=== PATIENT | female | born 2000 | race Two or more races ===

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

== ENCOUNTER 2021-08-24 12:22 | Emergency (ER) | payer OTHER ==
[~2021-08-24] VITALS: Ht 162.6 cm; Wt 72.6 kg
[~2021-08-24 12:22] MED LIST: IBUP-1955 PO
[2021-08-24 12:36] VITALS: BP 136/81
[2021-08-24] MEDS ORDERED: ACETAMINOPHEN ES 500 MG TABLET ONE (12:40)
[2021-08-24] MEDS: ACETAMINOPHEN 325 MG TABLET PO ONE (12:54)
[2021-08-24] MEDS ORDERED: BENZ-13 PO (14:27)
[2021-08-24] MEDS ORDERED: IBUP-1955 PO (14:27)
== END 2021-08-24 14:41 | disposition home or self-care (01) ==
LOC: ER 12:30
DX: J06.9 Acute upper respiratory infection, unspecified (principal); R51.9 Headache, unspecified; Z20.822 Contact with and (suspected) exposure to COVID-19; R03.0 Elevated blood-pressure reading, without diagnosis of hypertension
CPT/HCPCS: 71045; 87426; 87804; 99284; C9803 ×2; U0003